=== PATIENT | female | born 1940 | race Caucasian/White ===

== ENCOUNTER → 2016-08-11 | Outpatient (CLI) | payer OTHER ==
[~2016-08-11] MED LIST: ASPCH81X PO; BLUE GREEN ALGAE PO; CALC600T9 PO; CHOL2000 PO; HYDR-5688 PO; LISI20TA3 PO; NIAC750T2 PO; OMEG10007 PO; VERA180C2 PO; [UNRECOGNIZED DRUG - OTHER] PO; [UNRECOGNIZED DRUG - OTHER] PO; [UNRECOGNIZED DRUG - OTHER] PO
[2016-08-11 17:09] LABS: BASO % 0.4 %; BASO ABS # 0.03 K/uL (0-0.2); COMPLETE YES; HEMATOCRIT 42.5 % (37-47); IG% 0.1 %; LYMPH % 25.2 %; LYMPH ABS # 1.71 K/uL (1.2-3.4); MEAN CORPUSCULAR HEMOGLOBIN 30.4 pg (25-34); MEAN CORPUSCULAR HGB CONC 33.4 g/dl (32-36); MEAN PLATELET VOLUME 11.2 fL (7.4-10.4); MONO % 9.6 %; NEUT % 63.7 %; PLATELET COUNT 237 K/uL (130-400); RED BLOOD COUNT 4.67 M/uL (4.2-5.4); WHITE BLOOD COUNT 6.79 K/uL (4.8-10.8)
[2016-08-11 17:25] LABS: BLOOD UREA NITROGEN 11 mg/dl (7-18); BUN/CREATININE RATIO 14.2 (10-20); CALCIUM 9.6 mg/dl (8.5-10.1); CARBON DIOXIDE 29 mmol/L (21-32); CHLORIDE 105 mmol/L (98-107); CREATININE 0.77 mg/dl (0.60-1.20); GLUCOSE 85 mg/dl (70-99); POTASSIUM 4.2 mmol/L (3.5-5.1); SODIUM 141 mmol/L (136-145)
== END | disposition home or self-care (01) ==
LOC: C.LABBC 12:50
PROVIDERS: ATTEND Orthopaedic Surgery
DX: S83.271D Complex tear of lateral meniscus, current injury, right knee, subsequent encounter (principal); X58.XXXD Exposure to other specified factors, subsequent encounter

== ENCOUNTER → 2016-09-02 | Day surgery (SDC) | payer OTHER ==
[2016-08-19 10:30] VITALS: Ht 151.1 cm; Wt 70.5 kg
[~2016-09-02] VITALS: Ht 151.1 cm; Wt 70.5 kg
[~2016-09-02] MED LIST changes: +ATROPINE SULFATE 0.1 MG/ML 5ML SYR IV PRN; -BLUE GREEN ALGAE PO; +CEFAZOLIN 2000 MG/60 ML D5W IV SCH; +EpHEDrine SULFATE INJ 50 MG/ML AMP IV PRN; +EpINEphrine INJ 1MG/ML AMP 1 MG/ML AMP ONE; +FENTANYL CITRATE INJ 50 MCG/1 ML 2 ML VIAL IV PRN; +HYDROCODONE/ACETAMOPHEN 5/325MG TAB PO PRN; +KETOROLAC TROMETHAMINE 30 MG/ML VIAL ONE; +LACTATED RINGER'S 1000ML 1,000 ML IV SCH; +MIDAZOLAM HCL 1 MG/ML 2ML VIAL ONE; +ONDANSETRON INJ 2 MG/ML 2 ML VIAL IV PRN; +ROPIVACAINE 0.5% 5 MG/ML 30 ML VIAL ONE; +SODIUM CHLORIDE 0.9% 1000ML 1,000 ML IV SCH
--- NOTE | 2016-09-02 06:54 | History & Physical Bridge - [place] ---
H&P Re-Evaluation Bridge Note: I have examined the patient, reviewed the History & Physical and in the interval since the performance of the History & Physical I have noted the following changes of clinical significance: No changes noted
--- NOTE | 2016-09-02 07:50 | Discharge Instructions-SurgCtr ---
Discharge Instructions Visit Reason for Visit: Right Knee Lateral Meniscus Tear Discharge Discharge Diagnosis / Problem: RIGHT KNEE DJD, LATERAL MENISCUS TEAR Discharge Goals Goal(s): Decrease discomfort, Therapeutic intervention Activity Recommendations Activity Limitations: per Instructions/Follow-up section Weightbearing Status: Right weightbearing (as tolerated) Anesthesia . Post Anesthesia Instructions: If you have had General Anesthesia or IV Sedation: * Do not drive today. * Resume driving when surgeon permits. * Do not make important decisions or sign legal documents today. * Call surgeon for: 1. Temperature elevations greater than 101 degrees F. 2. Uncontrollable pain. 3. Excessive bleeding. 4. Persistent nausea and vomiting. 5. Medication intolerance (nausea, vomiting or rash). * For nausea and vomiting use only clear liquids such as: tea, soda, bouillon until nausea subsides, then gradually increase diet as tolerated. * If you have any concerns or questions, call your surgeon's office. If physician is unavailable and it is an emergency, call 911 or go to the nearest emergency room. . Instructions / Follow-Up Instructions / Follow-Up MEDICATIONS: * Resume previous medications unless instructed otherwise by your surgeon. * Always take pain medication on a full stomach or with food to avoid upset stomach. * Do not drink alcohol or drive while taking narcotics. * Ibuprofen or Tylenol may be taken if narcotic not needed. SPECIAL CARE INSTRUCTIONS: __ None _X_ Keep extremity elevated and iced x 48 hours; apply ice 20-30 minutes 8-10 times/day. May remove at night. __ Crutches __ May discard when able __ Brace/Post-op shoe __ 24 hrs/day __ Remove at night _X_ Dressing __ Maintain until seen in office, may shower with plastic over site _X_ Remove dressings in 48 hours and then may shower _X_ Cover incisions with band-aids after showering __ Do not remove steri-strips Call physician if chills or temperature rises above 102 degrees or pain unrelieved by prescribed pain medications. Office [phone] FOLLOW UP IN 2 WEEKS Diet Recommendations Home Diet: resume previous diet Procedures Procedures Performed: Right Knee Arthroscopy, Partial Lateral Meniscectomy, Chondroplasty Pending Studies Studies pending at discharge: no Medical Emergencies . Who to Call and When: Medical Emergencies: If at any time you feel your situation is an emergency, please call 911 immediately. . Non-Emergent Contact Non-Emergency issues call your: Primary Care Provider, Surgeon . . "Provider Documentation" section prepared by Drake Ernandez.
--- NOTE | 2016-09-02 08:04 | OPERATIVE REPORT ---
DATE OF OPERATION: 09/02/2016 PREOPERATIVE DIAGNOSIS: Lateral meniscal tear of the right knee. POSTOPERATIVE DIAGNOSES: Lateral meniscal tear with grade 3 and grade 4 chondral changes on both the distal medial and lateral femoral condyles. PROCEDURE: Right knee diagnostic arthroscopy with chondroplasty and partial lateral meniscectomy. SURGEON: Dr. Silvestre Perez. MOTOR LODGE CLERK: Ramin Ernandez PA-C, whose assistance was necessary for positioning the leg and helping with instrumentation. ANESTHESIA: General. COMPLICATIONS: None. CONDITION: Stable to PACU. INDICATIONS: Alem is a very pleasant 75-year-old female who presented to my office with a severe increase in right knee pain. All of her pain was located along the lateral joint line. MRI showed a lateral meniscal tear and some mild chondromalacia. She elected to undergo arthroscopy. On 09/02/2016, she arrived at [facility] for the above procedure. She was seen in the preoperative holding area, and the operative extremity was identified and signed. She was given a preoperative antibiotic, taken back to the operating room, laid on the table in supine position and put under general anesthesia. The right knee was prepped and draped in sterile fashion. Timeout was done, and the patient and operative extremity was properly identified. A scope was placed in the lateral parapatellar portal. Diagnostic arthroscopy showed no loose bodies in the suprapatellar pouch. There were some grade 2 chondral changes within the trochlea. The scope was brought into the medial compartment and a medial parapatellar portal was made under direct visualization. There was an area of grade 4 chondral changes in the center of the distal medial femoral condyle. The medial meniscus was intact. A shaver was used to do a small chondroplasty of the loose cartilage fragments. The scope was brought into the trochlea. ACL was intact. The scope was brought in the lateral compartment. There was an area of grade 3 chondral changes throughout the center of the distal lateral femoral condyle. There was a displaced tear of the posterior horn of the lateral meniscus. A shaver and a biter were used to take the meniscus back to stable margins. Multiple pictures were taken. Repeat diagnostic arthroscopy showed no additional pathology. The arthroscopic instruments were removed from the shoulder. The knee was then injected with 30 mL of Naropin with epinephrine and Toradol. Portal sites were closed with 3-0 nylon. She was then placed in a soft compressive dressing, extubated, transferred to a [facility] and taken to the postanesthesia care unit in stable condition and tolerated the procedure well. I attest to the content of the Intraoperative Record and any orders documented therein. Any exceptio ns are noted below.
[2016-09-02 08:24] VITALS: TEMP 36.5
--- NOTE | 2016-09-02 08:38 | Anesthesia Progress Nt - [facility] ---
Anesthesia Post Op Note Date & Time Sep 02, 2016 at 08:39 Vital Signs Pain Intensity: 3.0 Vital Signs Past 12 Hours Date Time Temp Pulse Resp B/P Pulse Ox O2 Delivery O2 Flow Rate FiO2 09/02/16 08:24 36.5 93 20 115/69 94 Room Air 09/02/16 08:15 89 17 96 09/02/16 08:15 88 17 09/02/16 08:13 130/57 09/02/16 08:10 92 15 95 09/02/16 08:10 92 15 09/02/16 08:09 94 20 96 09/02/16 08:09 91 20 09/02/16 08:08 126/65 09/02/16 08:07 37 89 20 126/65 95 Room Air 09/02/16 08:04 99 30 97 09/02/16 08:04 97 30 09/02/16 08:03 145/56 09/02/16 07:59 91 26 100 09/02/16 07:59 85 26 09/02/16 07:58 135/64 09/02/16 07:54 94 19 100 09/02/16 07:54 92 19 09/02/16 07:53 141/66 09/02/16 07:49 100 21 100 09/02/16 07:49 97 21 09/02/16 07:48 111 18 09/02/16 07:48 36.9 105 22 155/105 97 Room Air 09/02/16 07:48 110 18 146/67 99 09/02/16 06:27 36.8 81 20 125/80 96 Room Air Notes Mental Status: alert / awake / arousable, participated in evaluation Pt Amnestic to Procedure: Yes Nausea / Vomiting: adequately controlled Pain: adequately controlled Airway Patency, RR, SpO2: stable & adequate BP & HR: stable & adequate Hydration State: stable & adequate Anesthetic Complications: no major complications apparent
[2016-09-02 08:50] VITALS: BP 128/69; PULSE 96; O2SAT 95
--- NOTE | 2016-09-02 10:30 | [facility] Post Operative Brief Note ---
Immediate Operative Summary Operative Date Sep 02, 2016. Pre-Operative Diagnosis Right Knee Lateral Meniscus Tear Post-Operative Diagnosis Same Procedure(s) Performed Right Knee Arthroscopy, Partial Lateral Meniscectomy, Chondroplasty Surgeon Dr. Perez Coffee Shop Attendant Surgeon(s) ROSALINE Fung Estimated Blood Loss None Findings as above Specimens None Complication(s) None Disposition Recovery Room / PACU
== END | disposition home or self-care (01) ==
LOC: X.SURG 05:57
PROVIDERS: ATTEND Orthopaedic Surgery
DX: S83.281A Other tear of lateral meniscus, current injury, right knee, initial encounter (principal); X58.XXXA Exposure to other specified factors, initial encounter; Y92.89 Other specified places as the place of occurrence of the external cause; I10 Essential (primary) hypertension